=== PATIENT | male | born 1945 | race Caucasian/White ===

== ENCOUNTER 2019-08-17 08:55 | Day surgery (SDC) | payer OTHER ==
[2019-08-17 09:13] VITALS: RESP 18; TEMP 97.4
--- NOTE | 2019-08-17 10:17 | US ---
EXAMINATION TYPE: US biopsy soft tissue/muscle DATE OF EXAM: 08/17/2019 HISTORY: Right upper extremity soft tissue mass, history of lung cancer. FINDINGS: Maximal barrier technique was utilized. The skin overlying a suitable path to the patient' s mass in the right upper extremity the level of the forearm dorsally was localized with ultrasound a nd the overlying skin prepped and draped. Ultrasound was utilized with sterile technique. Lidocaine was used for local anesthesia. A skin asha was made with a scalpel. An 18-gauge needle was advance d under direct ultrasound guidance and core specimen obtained of the mass. Specimen submitted in for laureen to Pathology. Following the procedure, hemostasis achieved and the patient is discharged in st able condition without complication. IMPRESSION:STATUS POST ULTRASOUND GUIDED CORE BIOPSY OF right upper extremity soft tissue MASS, PATHO LOGY IS PENDING. THIS PROCEDURE IS PERFORMED BY THE UNDERSIGNED.
[2019-08-18 12:48] VITALS: BP 140/60; PULSE 74
== END 2019-08-17 10:45 | disposition home or self-care (01) ==
LOC: RADPROMAIN 08:55
PROVIDERS: ATTEND Internal Medicine Hematology & Oncology
DX: C79.51 Secondary malignant neoplasm of bone (principal); C78.00 Secondary malignant neoplasm of unspecified lung
CPT/HCPCS: 20206; 76942; 88305; 88341; 88342

== ENCOUNTER → 2019-11-19 | Outpatient (CLI) | payer OTHER ==
--- NOTE | 2019-11-22 08:44 | PE ---
EXAMINATION TYPE: PET CT fusion skull to thigh DATE OF EXAM: 11/19/2019 COMPARISON: None available at this location. Prior PET/CT: No prior PET/CT at this location. HISTORY: Lung cancer TECHNIQUE: Following the intravenous administration of 12.94 mCi of F-18 FDG, whole body images are performed from the skull base to the midthigh. Images are reviewed on the computer in the coronal, a xial, and sagittal planes. Reconstructed rotating images are created on independent workstation and reviewed on the computer. A localization and attenuation correction CT is performed in conjunction with the PET scan. DLP: 490.90 mGycm SCAN: Reported as subsequent. Prior PET CTs are unavailable. Blood glucose: 125 mg/dL Average Mediastinum SUV: 1.36 Average Liver SUV: 2.03 FINDINGS: NECK: No abnormal uptake THORAX: There is a consolidation within the anterior left upper lung field which has mild uptake jagdeep uring 2.08. Image 92. Focal areas of uptake are within the left hilar region, image 103. Uptake of th e anterior focus measures 3.69 and the posterior focus at the lingular lower lobe division measures 3 .6. There is a soft tissue density along the left mediastinum with a focus of increased radiotracer, image 112, SUV 4.19. Some subtle uptake may be in the right hilar region with an SUV value 1.87. This is nonspecific and i nflammatory change and early neoplasm could be considered. ABDOMEN: There is some focal increased uptake within the superior right adrenal gland measuring 2.82 SUV value. The more rounded focal portion of the right adrenal gland more inferior is less intense wi th radiotracer uptake measuring 2.2. Early metastatic disease should be considered in the superior ri ght adrenal gland. PELVIS: There is some focal increased uptake within the mid sigmoid colon with an SUV value of 4.96. Mild wall thickening is not excluded at this level. This is more focal and intense than typical ident ified with normal bowel activity. Consider additional workup for possible second neoplasm. Image 225 OSSEOUS STRUCTURES: There may be some mild uptake at the junction of the left first rib with the manu brium. This has mild uptake at the junction measuring 1.2 and is more likely related to some inflamma tory change. LOCALIZATION CT: Ascending thoracic aorta at the main pulmonary artery is 3.7 cm. Main pulmonary bon ry at the bifurcation is 2.7 cm. A small hypodensity within the region of the left hilum does not hav e significant radiotracer uptake, image 106. Coronary artery calcifications present. The right adrena l gland has a transverse dimension of 2.0 cm. Cysts are evident on the bilateral kidneys. Some sludge may be within the gallbladder. COMPARISON: None IMPRESSION: 1. There is a focus of radiotracer accumulation within the larger soft tissue density within the ante rior left upper lung field adjacent to the mediastinum suspicious for patient's reported lung cancer. Two additional foci radiotracer within the left hilar region may be metastatic lymph nodes. 2. Uptake within the superior right adrenal gland could be early metastatic disease. 3. Subtle uptake within the right hilar region is indeterminant and can be related to inflammatory ch irais or early metastatic disease. 4. Focus of radiotracer within the mid sigmoid colon with elevated SUV, consider additional neoplasm and consider additional workup of this area.
== END | disposition home or self-care (01) ==
LOC: RADPETMAIN 08:57
PROVIDERS: ATTEND Internal Medicine Hematology & Oncology
DX: C34.12 Malignant neoplasm of upper lobe, left bronchus or lung (principal)
CPT/HCPCS: 78815; A9552

== ENCOUNTER → 2020-01-03 | Outpatient (CLI) | payer OTHER ==
--- NOTE | 2020-01-03 10:34 | MR ---
EXAMINATION TYPE: MR elbow RT wo/w con DATE OF EXAM: 01/03/2020 COMPARISON: None HISTORY: Palpable mass rt elbow into prox forearm, hx radiation to this site. CONTRAST: Standard multiplanar, multisequence MRI departmental protocol utilizing 8.5 mL intravenous Gadavist g adolinium contrast. FINDINGS: There is a destructive mass involving the mid radius with abnormal marrow signal and a soft tissue ma ss measuring 2.5 x 2.9 x 3.6 cm. The joint spaces are preserved. No definite additional masses seen. There is surrounding edema adjace nt to the mass. IMPRESSION: 1. There is a 2.5 x 2.9 x 3.6 cm destructive mass involving the mid radius with soft tissue extension and marrow involvement.
== END | disposition home or self-care (01) ==
LOC: RADMRIMAIN 09:04
PROVIDERS: ATTEND Radiology Radiation Oncology
DX: R22.31 Localized swelling, mass and lump, right upper limb (principal); C79.51 Secondary malignant neoplasm of bone; F17.210 Nicotine dependence, cigarettes, uncomplicated; C34.12 Malignant neoplasm of upper lobe, left bronchus or lung
CPT/HCPCS: 73223; A9585

== ENCOUNTER → 2020-03-09 | Outpatient (CLI) | payer OTHER ==
--- NOTE | 2020-03-10 03:42 | MR ---
EXAMINATION TYPE: MR forearm RT wo/w con DATE OF EXAM: 03/09/2020 COMPARISON: HISTORY: Malignent tumor, F/U imaging post treatment CONTRAST: Standard multiplanar, multisequence MRI departmental protocol utilizing 7.5 mL intravenous Gadavist g adolinium contrast. There is an oval-shaped 3 x 2 x 2.8 cm mass involving the proximal shaft of the radius and extending into the soft tissues. There is cortical destruction on the anterior aspect of the proximal radius. T here is surrounding soft tissue edema. Proximal ulna is intact. The total area of edema measures 5 x 4 cm. Mass overall is not significantly different in size compared to previous MR scan. There is path ologic soft tissue enhancement around the mass and also enhancement of the mass. There is increased s ignal on the proton density images in the bone marrow proximal and distal to the mass within the radi us. IMPRESSION: There is mass lesion apparently arising from the cortex of the proximal radial diaphysis that is just distal to the radial tubercle. The mass overall is not significantly changed in size compared to pre vious exam of 01/03/2020. Edema surrounding the mass is slightly improved. 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 Bone marrow edema proximal and distal to the mass not significantly different.
== END | disposition home or self-care (01) ==
LOC: RADMRIMAIN 08:46
PROVIDERS: ATTEND Radiology Radiation Oncology
DX: C79.51 Secondary malignant neoplasm of bone (principal); C34.12 Malignant neoplasm of upper lobe, left bronchus or lung; F17.210 Nicotine dependence, cigarettes, uncomplicated; Z92.3 Personal history of irradiation
CPT/HCPCS: 73220; A9585

== ENCOUNTER → 2020-05-05 | Outpatient (CLI) | payer OTHER ==
--- NOTE | 2020-05-05 11:33 | MR ---
EXAMINATION TYPE: MR shoulder RT wo con DATE OF EXAM: 05/05/2020 COMPARISON: None HISTORY: Pain, history lung carcinoma TECHNIQUE: Multiplanar, multisequence imaging of the right shoulder is performed without contrast. FINDINGS: Rotator Cuff: There is a chronic rotator cuff tear with retraction of the supraspinatus tendon to the level of the acromioclavicular joint Acromioclavicular Joint: Hypertrophic changes are present Glenohumeral Joint: Humeral head is somewhat high riding Labrum: There is abnormal signal within the superior labrum, the labrum appears attenuated Biceps Tendon: The long head of biceps is in normal location within bicipital groove, fluid signal al liliya the tendon is consistent with tenosynovitis. Bone marrow signal: Some mild signal at the acromioclavicular joint, humeral head may represent react talon marrow signal change, possible small pseudocysts in the humeral head Other: Joselin present in the subacromial subdeltoid bursa. There is a distal acromial spur. IMPRESSION: Chronic rotator cuff tear, correlate for impingement. Difficult to exclude a tear of the glenoid labr um.
--- NOTE | 2020-05-05 11:39 | MR ---
EXAMINATION TYPE: MR shoulder LT wo con DATE OF EXAM: 05/05/2020 COMPARISON: None HISTORY: Bilateral shoulder pain, hx lung ca TECHNIQUE: Multiplanar, multisequence imaging of the left shoulder is performed without contrast. FINDINGS: Rotator Cuff: There is attenuated appearance of the rotator cuff at the level of its insertion, the s upraspinatus tendon shows at least a partial full-thickness tear, sagittal image #5 and 6 Acromioclavicular Joint: Hypertrophic change present at the acromioclavicular joint Glenohumeral Joint: Intact Labrum: Abnormal signal within the labrum may represent some mucoid degeneration, coronal image 15, t here is a possible para labral cyst on coronal image 15, axial image 17 Biceps Tendon: The long head of biceps is in normal location within bicipital groove. Bone marrow signal: Multiple pseudocysts present within the humeral head, small focus on coronal imag e 15 shows some intermediate signal on T1, increased signal on T2 weighted sequences, image 7 on sagi ttal image, there is marrow signal change measuring only approximately 1 cm in cephalad to caudal dim ension by 6 mm in AP dimension which is indeterminate, could be related to pseudocyst formation Other: There is fluid signal in the subacromial subdeltoid bursa. There is a distal acromial spur. IMPRESSION: Correlate for impingement. There is at least a partial full-thickness tear the rotator cuff, the rota tor cuff appears attenuated. Possible para labral cyst, tear of the glenoid labrum as described. Inde terminate marrow signal change as described of questionable clinical significance.
== END | disposition home or self-care (01) ==
LOC: RADMRIMAIN 08:52
PROVIDERS: ATTEND Internal Medicine Hematology & Oncology
DX: M75.101 Unspecified rotator cuff tear or rupture of right shoulder, not specified as traumatic (principal); M75.122 Complete rotator cuff tear or rupture of left shoulder, not specified as traumatic; C34.12 Malignant neoplasm of upper lobe, left bronchus or lung; M25.512 Pain in left shoulder; M25.119 Fistula, unspecified shoulder

== ENCOUNTER → 2020-06-09 | Outpatient (CLI) | payer OTHER ==
--- NOTE | 2020-06-11 15:27 | PE ---
Nuclear medicine PET/CT HISTORY: Lung carcinoma, subsequent Patient received 11.9 mCi F-18 FDG intravenously in delayed scanning was performed from the skull bas e to the mid thighs. Localization and attenuation correction CT scan was performed. Correlation to prior nuclear medicine PET/CT 11/19/2019 Chest and neck: There is no cervical or supraclavicular adenopathy. Left hilar mass shows abnormal up take extends into the left upper lobe along the mediastinum and is somewhat more conspicuous than on prior. There is been interval development of a focus of hypermetabolic uptake in the right hilum as w ell as interval development of right lower lobe subpleural mass with associated uptake which has prog ressed compared to prior. There is no pleural or pericardial effusion. ABDOMEN: Right adrenal gland uptake has progressed, mass is increased in size compared to prior now m easuring 2.9 x 5.7 cm as compared to prior when it measured approximately 2 cm x 3 cm. 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 No retroperit carey adenopathy, no evident liver uptake. There is no ascites. Sigmoid uptake is indeterminate but c ould be physiologic, difficult to exclude an underlying mucosal lesion, there is diverticulosis. Osseous structures are stable. IMPRESSION: There is been progression of patient's abnormalities as described.
== END | disposition home or self-care (01) ==
LOC: RADPETMAIN 10:20
PROVIDERS: ATTEND Internal Medicine Hematology & Oncology
DX: C34.12 Malignant neoplasm of upper lobe, left bronchus or lung (principal); R93.5 Abnormal findings on diagnostic imaging of other abdominal regions, including retroperitoneum; E11.9 Type 2 diabetes mellitus without complications; Z92.3 Personal history of irradiation; Z92.21 Personal history of antineoplastic chemotherapy
CPT/HCPCS: 78815; A9552

== ENCOUNTER → 2020-09-01 | Outpatient (CLI) | payer OTHER ==
[2020-09-01 11:23] LABS: African American GFR (CKD) >90 (>60 ml/min/1.73 sqM); Blood Urea Nitrogen 9 mg/dL (9-20); Non-African American GFR(CKD) 88 (>60 ml/min/1.73 sqM)
--- NOTE | 2020-09-01 13:42 | CT ---
EXAMINATION TYPE: CT ChestAbdPelvis wo/w con DATE OF EXAM: 09/01/2020 COMPARISON: Prior PET CTs June 09, 2020 and November 19, 2019 HISTORY: Secondary malignant neoplasm right adrenal gland. Primary lung. CT DLP: 3557 mGycm. Automated Exposure Control for Dose Reduction was Utilized. CONTRAST: CT scan of the thorax, abdomen and pelvis is performed without and with IV Contrast, patient injected with 100 mL of Isovue M300. FINDINGS: LUNGS: Backwall mild to moderate underlying emphysematous change. Continued worsening left hilar mass or neoplasm with some heterogeneous postcontrast enhancement, area of concern measures roughly 8.1 x 6.0 cm axial image 33 series 7. Extension to left hilar region redemonstrated. There is abrupt narro wing of the left upper lobe bronchus more prominent from prior studies. Stable or slightly larger appearing thick walled cavitary peripheral right lower lobe 2.8 x 2.5 cm le erica image 48 versus 2.4 x 2.1 cm most recent PET/CT. No pleural effusion or pneumothorax seen bilaterally. No new nodules or masses. Occasional scattered peripheral micronodule in the lower lobes redemonstrated. MEDIASTINUM: There are persistent suspicious right hilar lymph nodes for reference and 0.2 x 0.9 cm t he thorax measures 35 corresponding to most recent PET/CT. Persistent irregular tissue left hilar reg ion. No new greater than 1 cm adenopathy. No cardiomegaly or pericardial effusion is seen. Heteroge neous thyroid, underlying nodule suspected. LIVER/GB: Scattered small subcentimeter hypodense lesions throughout the liver favor benign etiology less well seen on PET/CT. Dependent calcified gallstones along with hyperdense material suggesting sm all stones and/or sludge. PANCREAS: No significant abnormality is seen. SPLEEN: No significant abnormality is seen. ADRENALS: Persistent right adrenal enhancing masses. There is 2.7 x 1.9 cm superior lateral lesion im age 67 and 2.2 x 1.7 cm slightly more inferior central lesion on image 67. Similar findings to most r ecent PET/CT. KIDNEYS: Scattered simple-appearing thin-walled cysts of varying size and shape throughout both kidne ys. There is 4 mm nonobstructing calculus left kidney midpole level axial image 74 series 7 redemonst rated. There are small dependent calculi in the urinary bladder left aspect axial image 121 BOWEL: Or contrast reaches level of the hepatic flexure. Sigmoid colonic diverticula. No CT evidence for acute diverticulitis. No suspicious small or large bowel dilatation. GENITAL ORGANS: Prostate gland upper limits of normal. LYMPH NODES: No greater than 1cm abdominal or pelvic lymph nodes are appreciated. OSSEOUS STRUCTURES: Moderate axial joint space loss in both hips with mild to moderate acetabular spu rring. Stable sclerotic focus favoring benign bone island left proximal humerus. OTHER: Severe calcified plaque of the abdominal aorta extends into iliac branch vessels. Asymmetric s mall fat-containing left inguinal hernia redemonstrated. IMPRESSION: Suspect some continued neoplastic progression. More prominent left hilar mass or neoplasm . Slightly larger thick-walled cavitary right lower lobe peripheral lesion. Stable right hilar adenop athy. Fairly stable right adrenal metastatic lesion. No new metastatic disease identified.
== END | disposition home or self-care (01) ==
LOC: RADCTMAIN 10:44
PROVIDERS: ATTEND Radiology Radiation Oncology
DX: R59.0 Localized enlarged lymph nodes (principal); J98.4 Other disorders of lung; E27.8 Other specified disorders of adrenal gland; C79.71 Secondary malignant neoplasm of right adrenal gland; C79.51 Secondary malignant neoplasm of bone; F17.210 Nicotine dependence, cigarettes, uncomplicated; Z92.3 Personal history of irradiation
CPT/HCPCS: 82565; 84520; 71270; 74178; 36415; Q9967 ×2

== ENCOUNTER → 2020-09-08 | Outpatient (CLI) | payer OTHER ==
--- NOTE | 2020-09-09 02:05 | MR ---
EXAMINATION TYPE: MR brain wo/w con DATE OF EXAM: 09/08/2020 COMPARISON: HISTORY: Cancer of right adrenal gland, secondary malignant neoplasm of bone CONTRAST: Standard multiplanar, multisequence MRI departmental protocol utilizing 8.5 mL intravenous Gadavist g adolinium contrast. There is a 2.6 cm rounded area of pathologic enhancement involving the left side of the brainstem and left cerebellar peduncle. There is adjacent extensive white matter edema in the brainstem and left c erebellar hemisphere. There are 2 smaller areas of rounded pathologic enhancement in the left cerebel lar hemisphere that measure 2.2 cm and 1.7 cm. These are consistent with metastatic disease. There is no midline shift. There is no sign of intracranial hemorrhage. There is normal enhancement of the ve nous sinuses. Corpus callosum is intact. Sella turcica appears normal. IMPRESSION: Enhancing masses in the left side of the brainstem in the batsheva and left cerebellar peduncle and in th e left cerebellar hemisphere consistent with multiple foci of metastatic disease.
== END | disposition home or self-care (01) ==
LOC: RADMRIMAIN 19:47
PROVIDERS: ATTEND Radiology Radiation Oncology
DX: R22.0 Localized swelling, mass and lump, head (principal); C79.51 Secondary malignant neoplasm of bone; C79.71 Secondary malignant neoplasm of right adrenal gland; F17.210 Nicotine dependence, cigarettes, uncomplicated; Z92.3 Personal history of irradiation
CPT/HCPCS: 70553; A9585

== ENCOUNTER → 2020-11-03 | Outpatient (CLI) | payer OTHER ==
--- NOTE | 2020-11-06 08:04 | MR ---
EXAMINATION TYPE: MR brain wo/w con DATE OF EXAM: 11/03/2020 COMPARISON: 09/08/2020 HISTORY: F/u Cancer CONTRAST: Performed utilizing 9 mL intravenous Gadavist gadolinium contrast. TECHNIQUE: Multiplanar, multiecho imaging on a 3.0 Stefany magnet is performed through the brain. Stud y is performed within 24 hours of arrival to the hospital. The craniovertebral junction is normal. The pituitary is normal. Diffusion-weighted imaging is performed. No abnormal hyperintensity is present to suggest an acute i ntracranial infarct or acute ischemic change. Metastatic lesions appear hypointense. There is an irregular enhancing lesion in the left cerebellum and 0.9 x 1.4 cm. A second more superio r left cerebellar enhancing lesion measuring 7 x 1.3 cm cyst present. There is a left brain stem lesi on measuring 2.4 x 1.9 cm. These were present previously. The vasogenic edema present previously has significantly diminished. A tiny 0.4 cm lesion may be within the right thalamus. This is a new finding from comparison. This m ay have enhancement suggesting possible metastasis. Differential diagnosis however should include lac unar infarct and focal microvascular ischemic change is not hyperintense on the diffusion weighted im aging suggests this is not an acute ischemic change. These findings can be compatible with metastatic disease. Ventricles and sulci are appropriate for the patient age. No temporal horn dilatation of the lateral ventricles is evident. No midline shift is evident. No mass effect on the adjacent fourth ventricle i s evident. This area has improved from previous edema. IMPRESSIONS: 1. Results vasogenic edema surrounding the enhancing metastatic lesions within the left cerebellum an d left brainstem. 2. There is a new 0.4 cm lesion within right thalamus. This could be a new lacunar infarct are focal microvascular ischemic change. This could be a new focus of metastasis.
== END | disposition home or self-care (01) ==
LOC: RADMRIMAIN 09:09
PROVIDERS: ATTEND Radiology Radiation Oncology
DX: G93.6 Cerebral edema (principal); G93.9 Disorder of brain, unspecified
CPT/HCPCS: 70553; A9585

== ENCOUNTER 2020-12-08 09:57 | Inpatient (IN) | payer OTHER, MEDICARE ==
[2020-12-08 10:09] VITALS: TEMP 99.3
[2020-12-08] MEDS ORDERED: LORazepam 2 MG/ML INJ IV STA ×2 (10:12→16:31)
[2020-12-08] MEDS ORDERED: SODIUM CHLORIDE 0.9% 1,000 ML IV ONE (10:12)
[2020-12-08] MEDS ORDERED: SODIUM CHLORIDE 0.9% 2,000 ML IV ONE (10:13)
[2020-12-08] MEDS ORDERED: MIDAZOLAM 1 MG/ML 5 ML VIAL IV STA (10:21)
[2020-12-08] MEDS ORDERED: SUCCINYLCHOLINE CHLORIDE VIAL 200 MG/10 ML VIAL IV STA (10:22)
[2020-12-08] MEDS ORDERED: ROCURONIUM 10 MG/ML (5 ML VIAL) IV STA (10:24)
[2020-12-08 10:27] LABS: Glucose,Whole Blood 237 mg/dL (75-99)
--- NOTE | 2020-12-08 10:31 | ED ---
General Adult HPI - General Chief complaint: Altered Mental Status Stated complaint: unresponsive Time Seen by Provider: 12/08/20 09:57 Source: family, EMS, RN notes reviewed, old records reviewed Limitations: no limitations - History of Present Illness Initial comments: This is a 75-year-old male comes in because of breath. Distress. states he was having what seemed like a panic attack and he became nauseous wanted to go to bathroom he kind of wanted to do everything all at once it was extremely anxious. When EMS arrived they get the patient to the ambulance and became unresponsive in the arrived unresponsive shortly thereafter he started moving all 4 extremities speaking but inappropriately not answering questions and following commands very agitated and anxious. 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 is not sure about the CODE STATUS but when she asked him he really was not of a sound mind he said he wanted to be intubated. Shortly thereafter the patient became alert and was normal was going on but then again became confused and significantly altered. - Related Data Home Medications Medication Instructions Recorded Confirmed Acetaminophen [Tylenol Arthritis] 650 mg PO DAILY 08/16/19 08/17/19 Cholecalciferol (Vitamin D3) 2,000 unit PO DAILY 08/16/19 08/17/19 [Vitamin D3] Multivitamin [Multivitamins Adult 1 each PO DAILY 08/16/19 08/17/19 Gummies] Vitamin B Complex 1 each PO DAILY 08/16/19 08/17/19 Allergies Allergy/AdvReac Type Severity Reaction Status Date / Time penicillin G Allergy Swelling Verified 12/08/20 10:05 Review of Systems ROS Statement: Those systems with pertinent positive or pertinent negative responses have been documented in the HPI. ROS Other: All systems not noted in ROS Statement are negative. Past Medical History Past Medical History: Cancer Additional Past Medical History / Comment(s): lung CA and lymph node have been treated with Chemo and radiation. Right arm lesion scheduled for biopsy and radiation. History of Any Multi-Drug Resistant Organisms: None Reported Past Surgical History: No Surgical Hx Reported Past Anesthesia/Blood Transfusion Reactions: No Reported Reaction Past Psychological History: No Psychological Hx Reported Past Alcohol Use History: None Reported Past Drug Use History: Marijuana General Exam - General Exam Comments Initial Comments: GENERAL: Patient is well-developed and well-nourished. Patient is nontoxic and well- hydrated and is in severe distress. ENT: Neck is soft and supple. No significant lymphadenopathy is noted. Oropharynx is clear. Moist mucous membranes. Neck has full range of motion without eliciting any pain. EYES: The sclera were anicteric and conjunctiva were pink and moist. Extraocular movements were intact and pupils were equal round and reactive to light. Eyelids were unremarkable. 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 SKIN: Skin appears mottled NEUROLOGIC: Patient is alert and oriented 0. Cranial nerves II through XII are grossly intact. Patient moving all 4 extremities. Patient has an initial GCS of 7 and it went up to 13 patient then became confused again and at which point time he would not settle down even with Ativan so we intubated him because he was GCS of 7 again and was not responding to his low and his blood pressure was low and we needed to get the patient to the CAT scanner. MUSCULOSKELETAL: Normal extremities with adequate strength and full range of motion. LYMPHATICS: No significant lymphadenopathy is noted PSYCHIATRIC: Unable to assess at this time Limitations: no limitations Course Vital Signs 12/08/20 12/08/20 12/08/20 09:59 10:14 11:09 Temperature 99.3 F Pulse Rate 150 H 134 H 113 H Respiratory 26 H 18 16 Rate Blood Pressure 97/63 85/69 87/62 O2 Sat by Pulse 96 92 L 99 Oximetry Procedures - Intubation Sedative: Versed Paralytic: Succinylcholine Laryngoscope: Carreno Size: 3 ET Tube Size: 8 ET Tube Uncuffed: No Tube Secured Location: teeth Tube Placement Confirmation: visualized tube passing through cords, equal breath sounds bilaterally, no breath sounds over epigastrium, confirmation by capnometry Patient Tolerated Procedure: well Intubation Complications: none Medical Decision Making - Medical Decision Making EKG shows atrial fibrillation with rapid ventricular response at 122 bpm cardiac is under 44 QT interval 340 QTC is 484. Patient does have some ST segment elevation in the inferior leads II, III, and F aVF. As was ST segment depression in precordial leads V2 through V6 as well as 1 and aVL I spoke with Dr. Vilchis he came down and saw the patient but because the patient was so unstable he was not going to take the patient's lab at this time after the patient was intubated repeat EKG was also sinus tachycardia with occasional PVC at [address] interval is 176 QRS is 150 QT interval 338 QTC is 465. Patient's EKG no longer shows any ST segment elevation in the inferior leads. Patient does have Q waves in the inferior leads. I spoke with family stated the patient was a no code but they wanted him to scan the ventilator was helping him at least for the time being. I spoke with Dr. Davis toe he stated there would be no intervention. Pulmonary embolism. Computed tomography scan shows a massive pulmonary embolus. Patient is on Levophed and heparin as well as propofol. - Lab Data Result diagrams: 12/08/20 10:16 12/08/20 10:16 Lab Results 12/08/20 12/08/20 12/08/20 Range/Units 10:07 10:16 10:16 WBC 18.2 H (3.8-10.6) k/uL RBC 4.76 (4.30-5.90) m/uL Hgb 13.7 (13.0-17.5) gm/dL Hct 44.9 (39.0-53.0) % MCV 94.3 (80.0-100.0) fL MCH 28.8 (25.0-35.0) pg MCHC 30.5 L (31.0-37.0) g/dL RDW 15.9 H (11.5-15.5) % Plt Count 421 (150-450) k/uL MPV 7.6 Neutrophils % 70 % Lymphocytes % 18 % Monocytes % 7 % Eosinophils % 1 % Basophils % 1 % Neutrophils # 12.7 H (1.3-7.7) k/uL Lymphocytes # 3.3 (1.0-4.8) k/uL Monocytes # 1.2 H (0-1.0) k/uL Eosinophils # 0.2 (0-0.7) k/uL Basophils # 0.2 (0-0.2) k/uL Hypochromasia Marked PT 9.7 (9.0-12.0) sec INR 0.9 (<1.2) APTT 20.5 L (22.0-30.0) sec D-Dimer 8.64 H (<0.60) mg/L FEU Sample Site ABG pH (7.35-7.45) ABG pCO2 (35-45) mmHg ABG pO2 (83-108) mmHg ABG HCO3 (21-25) mmol/L ABG Total CO2 (19-24) mmol/L ABG O2 Saturation (94-97) % ABG Base Excess mmol/L Brian Test FiO2 % Sodium (137-145) mmol/L Potassium (3.5-5.1) mmol/L Chloride (98-107) mmol/L Carbon Dioxide (22-30) mmol/L Anion Gap mmol/L BUN (9-20) mg/dL Creatinine (0.66-1.25) mg/dL Est GFR (CKD-EPI)AfAm (>60 ml/min/1.73 sqM) Est GFR (CKD-EPI)NonAf (>60 ml/min/1.73 sqM) Glucose (74-99) mg/dL POC Glucose (mg/dL) 237 H (75-99) mg/dL POC Glu Split Leather Mosser ID Willing, Ann Calcium (8.4-10.2) mg/dL Total Bilirubin (0.2-1.3) mg/dL AST (17-59) U/L ALT (4-49) U/L Alkaline Phosphatase (38-126) U/L Troponin I (0.000-0.034) ng/mL Total Protein (6.3-8.2) g/dL Albumin (3.5-5.0) g/dL 12/08/20 12/08/20 12/08/20 Range/Units 10:16 10:16 11:08 WBC (3.8-10.6) k/uL RBC (4.30-5.90) m/uL Hgb (13.0-17.5) gm/dL Hct (39.0-53.0) % MCV (80.0-100.0) fL MCH (25.0-35.0) pg MCHC (31.0-37.0) g/dL RDW (11.5-15.5) % Plt Count (150-450) k/uL MPV Neutrophils % % Lymphocytes % % Monocytes % % Eosinophils % % Basophils % % Neutrophils # (1.3-7.7) k/uL Lymphocytes # (1.0-4.8) k/uL Monocytes # (0-1.0) k/uL Eosinophils # (0-0.7) k/uL Basophils # (0-0.2) k/uL Hypochromasia PT (9.0-12.0) sec INR (<1.2) APTT (22.0-30.0) sec D-Dimer (<0.60) mg/L FEU Sample Site rbrach ABG pH 6.94 L* (7.35-7.45) ABG pCO2 81 H* (35-45) mmHg ABG pO2 302 H (83-108) mmHg ABG HCO3 17 L (21-25) mmol/L ABG Total CO2 20 (19-24) mmol/L ABG O2 Saturation 98.7 H (94-97) % ABG Base Excess -15.1 mmol/L Brian Test Yes FiO2 100 % Sodium 143 (137-145) mmol/L Potassium 4.1 (3.5-5.1) mmol/L Chloride 106 (98-107) mmol/L Carbon Dioxide 18 L (22-30) mmol/L Anion Gap 19 mmol/L BUN 11 (9-20) mg/dL Creatinine 0.97 (0.66-1.25) mg/dL Est GFR (CKD-EPI)AfAm 90 (>60 ml/min/1.73 sqM) Est GFR (CKD-EPI)NonAf 78 (>60 ml/min/1.73 sqM) Glucose 249 H (74-99) mg/dL POC Glucose (mg/dL) (75-99) mg/dL POC Glu Split Leather Mosser ID Calcium 9.7 (8.4-10.2) mg/dL Total Bilirubin 0.6 (0.2-1.3) mg/dL AST 22 (17-59) U/L ALT 12 (4-49) U/L Alkaline Phosphatase 99 (38-126) U/L Troponin I 0.101 H* (0.000-0.034) ng/mL Total Protein 5.9 L (6.3-8.2) g/dL Albumin 3.2 L (3.5-5.0) g/dL Critical Care Time Critical Care Time: Yes Total Critical Care Time: 50 Disposition Clinical Impression: Altered mental status, Pulmonary embolus, Respiratory distress Disposition: ADMITTED IP TO THIS HOSP Referrals: None,Stated [Primary Care Provider] - 1-2 days Time of Disposition: 11:51
[2020-12-08 10:34] LABS: Albumin 3.2 g/dL (3.5-5.0); Calcium 9.7 mg/dL (8.4-10.2); Potassium 4.1 mmol/L (3.5-5.1); Total Bilirubin 0.6 mg/dL (0.2-1.3); Total Protein 5.9 g/dL (6.3-8.2)
[2020-12-08 10:40] LABS: Basophils # (A) 0.2 k/uL (0-0.2); Basophils % (A) 1 %; Eosinophils # (A) 0.2 k/uL (0-0.7); Eosinophils % (A) 1 %; HCT 44.9 % (39.0-53.0); HGB 13.7 gm/dL (13.0-17.5); Hypochromasia Marked; Lymphocytes # (A) 3.3 k/uL (1.0-4.8); Lymphocytes % (A) 18 %; MCH 28.8 pg (25.0-35.0); MCHC 30.5 g/dL (31.0-37.0); MCV 94.3 fL (80.0-100.0); Mean Platelet Volume 7.6; Monocytes # (A) 1.2 k/uL (0-1.0); Monocytes % (A) 7 %; Neutrophils # (A) 12.7 k/uL (1.3-7.7); Neutrophils % (A) 70 %; Platelet Count 421 k/uL (150-450); RBC 4.76 m/uL (4.30-5.90); RDW 15.9 % (11.5-15.5); WBC 18.2 k/uL (3.8-10.6)
--- NOTE | 2020-12-08 11:06 | CT ---
EXAMINATION TYPE: CT brain wo con DATE OF EXAM: 12/08/2020 COMPARISON: Correlation made with MRI of the brain from 11/03/2020. HISTORY: Pt unresponsive CT DLP: 1139.4 mGycm Automated exposure control for dose reduction was used. FINDINGS: Images demonstrate no evidence of an acute intracranial hemorrhage. There is no midline shift. There is demonstration of area of low-attenuation involving the left batsheva and left cerebellum likely representing malignant lesion seen on MRI of the brain from a month ago. There is subtle low attenuation in periventricular distribution likely representing chronic small ves shazia ischemic disease. No displaced skull fracture or lytic or blastic process is seen. IMPRESSION: REDEMONSTRATION OF MALIGNANT LESION IN THE LEFT BATSHEVA AND LEFT CEREBELLUM. NO ACUTE INTRACRANIAL HEMOR RHAGE.
[2020-12-08] MEDS ORDERED: HEPARIN SODIUM 1,000 UN/ML (10ML VL) IV STA (11:10)
[2020-12-08] MEDS ORDERED: HEPARIN SOD,PORK IN 0.45% NACL 25,000 UNIT in 0.45% NACL 1 250ML.BAG IV SCH (11:15)
[2020-12-08] MEDS ORDERED: NOREPINEPHRINE 4 MG in SODIUM CHLORIDE 0.9% 250 ML IV SCH (11:15)
--- NOTE | 2020-12-08 11:18 | CT ---
EXAMINATION TYPE: CT chest angio for PE DATE OF EXAM: 12/08/2020 COMPARISON: Pain from 4 9 HISTORY: Unresponsive, SANDRA CT DLP: 644.2 mGycm Automated exposure control for dose reduction was used. CONTRAST: CT Chest for pulmonary embolism performed with with IV Contrast, patient injected with 100 mL of Isov ue 370. Multiplanar reconstruction in the imaging reconstruction was provided. Correlation made with prior ex amination from 09/01/2020. FINDINGS: LUNGS: Images demonstrate presence of 8 x 6 cm left hilar mass and appears slightly larger compared t o prior examination. A right lower lobe necrotic mass measures 2.5 x 3.0 cm and this is also enlarged compared to prior examination. MEDIASTINUM: There is large filling defect seen in the right main pulmonary artery. Smaller filling d efects are seen in the segmental branches of the left pulmonary artery. The findings represent massiv e bilateral pulmonary embolism. There is reflux of contrast into the IVC. There is decrease in size o f the left ventricle and increase in size of the right ventricle this represents right heart strain. OTHER: There is no pericardial effusion or pleural effusion. IMPRESSION: Massive or submassive pulmonary embolism with severe right heart strain. Mild: Findings on this study were conveyed to Dr. Funez the emergency room at 11:16 AM via telephone b y Dr. Olivera. Marge findings was performed. Patient was identified with 2 patient identifiers.
[2020-12-08 11:19] LABS: INR 0.9 (<1.2); Prothrombin Time 9.7 sec (9.0-12.0)
[2020-12-08 11:20] LABS: D-Dimer 8.64 mg/L FEU (<0.60); Partial Thromboplastin Time 20.5 sec (22.0-30.0)
[2020-12-08 11:23] LABS: ABG Base Excess -15.1 mmol/L; ABG HCO3 17 mmol/L (21-25); ABG Oxygen Saturation 98.7 % (94-97); ABG PO2 302 mmHg (83-108); ABG TCO2 20 mmol/L (19-24); Allen Test Performed? Yes
[2020-12-08 11:31] LABS: ABG PCO2 81 mmHg (35-45); ABG PH 6.94 (7.35-7.45)
[2020-12-08] MEDS ORDERED: fentaNYL (PF). 1,000 MCG in SODIUM CHLORIDE 0.9% 80 ML IV SCH (12:45)
--- NOTE | 2020-12-08 12:53 | P.CRDCN ---
History of Present Illness History of present illness: HISTORY OF PRESENTING ILLNESS This is a pleasant 75-year-old male past medical history significant for lung cancer with mets to the brain s/p chemo and radiation. We were called in ER to see this patient for possible ST elevation noted on EKG. He was brought in by EMS for being unresponsive at home. He was obtunded on arrival to ER and not responding appropriately. He is thrashing around on the cart. He is visibly short of breath. According to his he had acute onset of shortness of breath and feeling very anxious. On arrival to ER he was intubated to protect his airway. EKG revealed ST elevations inferiorly with underlying atrial fibrillation with rates in the 120-130s. After intubation his oxygen saturation were only 65%. Eventually they were able to get him to CT and was found to have submassive PE with severe right heart strain. Laboratory data reviewed, WBC 18.2, hemoglobin 13.7, platelets 421, d-dimer 8.6, pH 6.9, pCO2 81, pO2 302 and bicarb 17, sodium 143, potassium 4.1, creatinine 0.97, troponin 0.101. REVIEW OF SYSTEMS At the time of my exam: Complains of severe shortness of breath. Otherwise unable to obtain full review of systems. PHYSICAL EXAMINATION Blood pressure 87/62 heart rate 113 afebrile and maintaining oxygen saturation on mechanical ventilation. CONSTITUTIONAL: Significant respiratory distress. Mottled and blue from the neck up. HEENT: Head is normocephalic. Mucous membranes of the mouth are moist. No JVD. No carotid bruit. CHEST EXAMINATION: Lungs are clear to auscultation. No chest wall tenderness is noted on palpation or with deep breathing. HEART EXAMINATION: Irregular rate and rhythm. S1, S2 heard. EXTREMITIES: 1+ peripheral pulses, no lower extremity edema and no calf tenderness. NEUROLOGIC EXAMINATION: Unresponsive ASSESSMENT ST elevation Hypoxic respiratory failure Paroxysmal atrial fibrillation with rapid ventricular rate Massive/submassive pulmonary embolism History of lung cancer with brain mets PLAN Lengthy discussion with his . Given his underlying significant metastatic disease, PE and hypoxia his prognosis is extremely poor. We do not recommend aggressive intervention at this time and she is in complete agreement. He has been initiated on IV heparin for PE. Add daily aspirin and atorvastatin. Obtain 2D echocardiogram and doppler study to assess cardiac structure and function. Thank you kindly for this consultation. Nurse Practitioner note has been reviewed, I agree with a documented findings and plan of care. Patient was seen and examined. Past Medical History Past Medical History: Cancer Additional Past Medical History / Comment(s): lung CA and lymph node have been treated with Chemo and radiation. Right arm lesion scheduled for biopsy and radiation. History of Any Multi-Drug Resistant Organisms: None Reported Past Surgical History: No Surgical Hx Reported Past Anesthesia/Blood Transfusion Reactions: No Reported Reaction Past Psychological History: No Psychological Hx Reported Past Alcohol Use History: None Reported Past Drug Use History: Marijuana Medications and Allergies Home Medications Medication Instructions Recorded Confirmed Type Acetaminophen [Tylenol Arthritis] 650 mg PO DAILY 08/16/19 08/17/19 History Cholecalciferol (Vitamin D3) 2,000 unit PO DAILY 08/16/19 08/17/19 History [Vitamin D3] Multivitamin [Multivitamins Adult 1 each PO DAILY 08/16/19 08/17/19 History Gummies] Vitamin B Complex 1 each PO DAILY 08/16/19 08/17/19 History Allergies Allergy/AdvReac Type Severity Reaction Status Date / Time penicillin G Allergy Swelling Verified 12/08/20 10:05 Physical Exam Vitals: Vital Signs Temp Pulse Resp BP Pulse Ox 12/08/20 11:09 113 H 16 87/62 99 12/08/20 10:14 134 H 18 85/69 92 L 12/08/20 09:59 99.3 F 150 H 26 H 97/63 96 Intake and Output 12/07/20 12/08/20 12/08/20 22:59 06:59 14:59 Other: Weight 95.254 kg Results 12/08/20 10:16 12/08/20 10:16 Cardiac Enzymes 12/08/20 12/08/20 Range/Units 10:16 10:16 AST 22 (17-59) U/L Troponin I 0.101 H* (0.000-0.034) ng/mL Coagulation 12/08/20 Range/Units 10:16 PT 9.7 (9.0-12.0) sec APTT 20.5 L (22.0-30.0) sec CBC 12/08/20 Range/Units 10:16 WBC 18.2 H (3.8-10.6) k/uL RBC 4.76 (4.30-5.90) m/uL Hgb 13.7 (13.0-17.5) gm/dL Hct 44.9 (39.0-53.0) % Plt Count 421 (150-450) k/uL Comprehensive Metabolic Panel 12/08/20 Range/Units 10:16 Sodium 143 (137-145) mmol/L Potassium 4.1 (3.5-5.1) mmol/L Chloride 106 (98-107) mmol/L Carbon Dioxide 18 L (22-30) mmol/L BUN 11 (9-20) mg/dL Creatinine 0.97 (0.66-1.25) mg/dL Glucose 249 H (74-99) mg/dL Calcium 9.7 (8.4-10.2) mg/dL AST 22 (17-59) U/L ALT 12 (4-49) U/L Alkaline Phosphatase 99 (38-126) U/L Total Protein 5.9 L (6.3-8.2) g/dL Albumin 3.2 L (3.5-5.0) g/dL Current Medications Generic Name Dose Route Start Last Admin Trade Name Freq PRN Reason Stop Dose Admin Norepinephrine Bitartrate 4 mg 254 mls @ 18.146 mls/hr 12/08/20 11:15 12/08/20 11:06 / Sodium Chloride IV 0.05 mcg/kg/min .Q14H JENNIFER 18.146 mls/hr Administration Protocol 0.05 MCG/KG/MIN Heparin Sodium/Sodium Chloride 250 mls @ 17.146 mls/hr 12/08/20 11:15 12/08/20 11:41 25,000 unit/ Sodium Chloride IV 18 units/kg/hr .[id number] JENNIFER 17.146 mls/hr Administration Protocol 18 UNITS/KG/HR Intake and Output 12/07/20 12/08/20 12/08/20 22:59 06:59 14:59 Other: Weight 95.254 kg Patient Weight 12/09/20 06:59 Weight 95.254 kg 12/08/20 10:16 12/08/20 10:16
[2020-12-08] MEDS ORDERED: ATORVASTATIN 80 MG TAB PO SCH (13:00)
[2020-12-08] MEDS ORDERED: ASPIRIN 81 MG PO SCH (13:00)
[2020-12-08] MEDS ORDERED: NALOXONE 0.4 MG/ML 1 ML VIAL IV PRN (13:04)
--- NOTE | 2020-12-08 13:23 | P.CNPUL ---
History of Present Illness Consult date: 12/08/20 Reason for consult: hypoxemia, pulmonary embolism Chief complaint: Shortness of breath History of present illness: This is a 75-year-old gentleman with a known history of metastatic lung cancer, stage IV. PET scan from May 2020 revealed left hilar mass extending into the left upper lobe lung mediastinum an interval development of uptake in the right hilum as well as a right lower lobe subpleural mass. Recent right adrenal gland mass measuring 2.9 x 5.7 revealing progression compared to one in October 2019. Computed tomography scan of the chest abdomen and pelvis from August 2020 also revealed neoplastic progression. More prominent left hilar mass. Slightly larger thick-walled cavitary right lower lobe lesion. Stable right hilar adenopathy. Fairly stable right adrenal metastatic lesion. MRI of the brain from 11/03/2020 revealed vasogenic edema surrounding enhancing metastatic lesions within the left cerebellum and left brain stem. There was a new 0.4 cm lesion within the right thalamus. Possible new lacunar infarct with microvascular ischemic changes. The patient had subsequently undergone radiation treatments to the brain. Since that time he has become progressively weak and fatigued and tired. He had been mainly moving only from his bed to the couch and back to bed the last couple of weeks according to his family. Earlier this morning the patient had hollered for his he was in respiratory distress. She felt as though he was having a panic attack. Was nauseated and then became extremely anxious and short of breath. EMS was called the patient was unresponsive initially but moving all 4 extremities. He is brought into the emergency room and subsequently intubated and placed on mechanical ventilator. EKG revealed atrial fibrillation with a rapid ventricular response with heart rate in the 120s. Also ST segment depression in leads V2 through 6. He was deemed too unstable to go to the [facility]. CT angiogram reveals massive or submassive pulmonary embolism with severe right heart strain. Not a candidate for TPA due to metastatic brain lesions. He is seen this morning in consultation in the emergency room. He remains intubated on mechanical ventilator. Currently on propofol at 30 mcg/kg/m. Norepinephrine at 0.1 mcg/kg/m. Heparin drip per weight-based protocol. Current vent settings are assist control at a rate of 28, tidal volume 400, FiO2 100% and a PEEP of 5. Arterial blood gases revealed a PaO2 of 302, pCO2 81, pH 6.94. White count 18.2. Hemoglobin 13.7. D-dimer 8.64. Sodium 143. Potassium 4.1. Bicarb 18. Creatinine 0.97. Glucose 249. Troponin 0.101. Review of Systems ROS unobtainable: due to endotracheal tube Past Medical History Past Medical History: Cancer Additional Past Medical History / Comment(s): lung CA and lymph node have been treated with Chemo and radiation. Right arm lesion scheduled for biopsy and radiation. History of Any Multi-Drug Resistant Organisms: None Reported Past Surgical History: No Surgical Hx Reported Past Anesthesia/Blood Transfusion Reactions: No Reported Reaction Past Psychological History: No Psychological Hx Reported Past Alcohol Use History: None Reported Past Drug Use History: Marijuana Medications and Allergies Home Medications Medication Instructions Recorded Confirmed Type Acetaminophen [Tylenol Arthritis] 650 mg PO DAILY 08/16/19 08/17/19 History Cholecalciferol (Vitamin D3) 2,000 unit PO DAILY 08/16/19 08/17/19 History [Vitamin D3] Multivitamin [Multivitamins Adult 1 each PO DAILY 08/16/19 08/17/19 History Gummies] Vitamin B Complex 1 each PO DAILY 08/16/19 08/17/19 History Allergies Allergy/AdvReac Type Severity Reaction Status Date / Time penicillin G Allergy Swelling Verified 12/08/20 10:05 Physical Exam Vitals: Vital Signs Temp Pulse Resp BP Pulse Ox 12/08/20 11:09 113 H 16 87/62 99 12/08/20 10:14 134 H 18 85/69 92 L 12/08/20 09:59 99.3 F 150 H 26 H 97/63 96 Intake and Output 12/07/20 12/08/20 12/08/20 22:59 06:59 14:59 Other: Weight 95.254 kg GENERAL EXAM: Intubated, sedated 75-year-old gentleman. HEAD: Normocephalic. EYES: Normal reaction of pupils, equal size. NOSE: Clear with pink turbinates. THROAT: No erythema or exudates. NECK: No masses, no JVD. CHEST: No chest wall deformity. LUNGS: Equal air entry with bilateral scattered rhonchi CVS: S1 and S2 normal with no audible murmur, irregular rhythm. ABDOMEN: No hepatosplenomegaly, normal bowel sounds, no guarding or rigidity. SPINE: No scoliosis or deformity SKIN: No rashes CENTRAL NERVOUS SYSTEM: Intubated, sedated, tone is normal in all 4 extremities. EXTREMITIES: There is no peripheral edema. No clubbing, no cyanosis. Peripheral pulses are intact. Results - Laboratory Findings CBC and BMP: 12/08/20 10:16 12/08/20 10:16 ABG ABG pH 6.94 (7.35-7.45) L* 12/08/20 11:08 ABG pCO2 81 mmHg (35-45) H* 12/08/20 11:08 ABG pO2 302 mmHg (83-108) H 12/08/20 11:08 ABG O2 Saturation 98.7 % (94-97) H 12/08/20 11:08 PT/INR, D-dimer PT 9.7 sec (9.0-12.0) 12/08/20 10:16 INR 0.9 (<1.2) 12/08/20 10:16 D-Dimer 8.64 mg/L FEU (<0.60) H 12/08/20 10:16 Abnormal lab findings: Abnormal Labs 12/08/20 12/08/20 12/08/20 10:07 10:16 10:16 WBC 18.2 H MCHC 30.5 L RDW 15.9 H Neutrophils # 12.7 H Monocytes # 1.2 H APTT 20.5 L D-Dimer 8.64 H ABG pH ABG pCO2 ABG pO2 ABG HCO3 ABG O2 Saturation Carbon Dioxide Glucose POC Glucose (mg/dL) 237 H Troponin I Total Protein Albumin 12/08/20 12/08/20 12/08/20 10:16 10:16 11:08 WBC MCHC RDW Neutrophils # Monocytes # APTT D-Dimer ABG pH 6.94 L* ABG pCO2 81 H* ABG pO2 302 H ABG HCO3 17 L ABG O2 Saturation 98.7 H Carbon Dioxide 18 L Glucose 249 H POC Glucose (mg/dL) Troponin I 0.101 H* Total Protein 5.9 L Albumin 3.2 L - Diagnostic Findings CT scan - chest: image reviewed Assessment and Plan Assessment: 1 Acute hypoxemic respiratory failure secondary to massive/submassive pulmonary emboli in the right main pulmonary artery with severe right heart strain 2 Atrial fibrillation with a rapid ventricular response 3 Troponin leak 4 Progression of primary lung adenocarcinoma, stage IV with metastatic lesions to the right adrenal gland and brain 5 Recent radiation therapy to the brain Plan: The patient was seen and evaluated by Dr. Forte CAT scan and labs reviewed Overall prognosis remains quite poor and guarded Not a candidate for TPA therapy based on his metastatic brain lesion Too unstable for EKOS/cardac procedures Patient's and daughter at the bedside They are considering comfort care In the interim, we'll continue with full supportive care Titrate the norepinephrine as tolerated Continue heparin drip Increase propofol for proper sedation Add Fentanyl drip Titrate the FiO2 as tolerated Transfer to the intensive care unit We will continue to follow and make further recommendations based on his clinical status I, the cosigning physician, performed a history & physical examination of the patient. Lungs sounds bilateral scattered rhonchi. Maintaining good O2 saturations in the 90s on 100% FiO2 via the mechanical ventilator. I discussed the assessment and plan of care with my nurse practitioner, Samreen Chacko. I attest to the above note as dictated by her. Time with Patient: Greater than 30
[2020-12-08 13:43] VITALS: RESP 20
[2020-12-08 15:57] VITALS: BP 69/33; PULSE 96
--- NOTE | 2020-12-08 16:11 | P.CONS ---
History of Present Illness - Reason for Consult Consult date: 12/08/20 metastatic lung cancer, PE, respiratory failure - History of Present Illness The pt is a 75 yr old WM, seen by Dr Gutierrez. His Oncology history is as follows ; He was diagnosed with stage IIIC Adenocarcinoma of left lung on October 26 2018 at [facility] in [place], [place]. He presented with large L hilar mass and bilateral mediastinal lymphadenopathy and palpable L supraclavicular lymphadenopathy. All areas had extensive yenny picious uptake on PET Scan. Diagnosis established by US-Guided core biopsy revealed Adenocarcinoma of pulmonary origin. He was treated with 3 cycles of Chemotherapy (Cisplatinum+Alimta) concurrently with EBRT. Wa started on maintenance Darvolumab in February 2019, he continues to receive todate. Recent PET Scan in May 2019 revealed regression of all disease sites, but new R Forearm Radius lesion, no biopsy performed. Referral to Radiation Oncology advised, the patient opted to come back to [place], thus being seen in our office . Harmeet smoked 2 PPD X 30 years, quit 20 years ago, denies ETOH use, remains fully active. 09/14/19: Feels Ok, C/O R elbow/Forearm pain, received XRT to Bone lesion (Bx- proven metastatic Adenocarcinoma of lung). Tolerating Imfinzi well. 10/26/19: Feels well, tolerating Imfinzi well, no chest pain or SOB, no anorexia or weight loss, remains fully active. 11/24/19: Feels well, tolerating Imfinzi well, no anorexia, weight loss, chest pain or SOB. 12/21/19: Reported re-developing mass in R forearm, was seen by Dr Woodward & MRI ordered (12/31/19). No pain, tolerating Darvolumab well. 01/04/20: C/O R forearm pain. MRI > definate progression. 01/25/20: C/O increasing pain in R forearm > mass increasing in size. 02/22/20: Feels well, mass in R forearm decreased following XRT. 04/12/20: Feels well, has local R proximal forearm pain, tolerating Opdivo well. 05/19/20: C/O bilateral shoulders pain, L>R, MRI revealed bilateral rotator cuff tear. Tolerating Opdivo well. 06/16/20: C/O diffuse arthralgias, he thinks its due to Opdivo. PET Scan: Progression of R adrenal met, no new area of disease. the patient refused more chemotherapy at that time but agreed to follow-up with radiation oncology The patient did not follow-up with us after 06/16. He did continue follow-up with radiation oncology. He was diagnosed with brain metastasis in 09/17 and underwent radiation for the same. Repeat MRI in 11/15 showed stable cerebellar lesions with possibility of a new lesion versus infarct in the left brain stem. the patient came into the emergency room, because of acute onset of what seemed like a panic attack and confusion. He appear to be obviously short of breath and became unresponsive. In the ER he had some episodic recovery of mentation. He was also found to be hypotensive and hypoxic and was intubated. Currently the patient is on the ventilator on 100% oxygen, and requiring Levophed. CT angiogram showed massive bilateral PE. Incidentally there also appeared to be some progression of his lung lesions. Consult was placed for further evaluation and recommendations The patient was on the ventilator and unable to provide any history. History was obtained from his chart, direct discussion with radiation oncology and ER physician, as well as his and family. The family indicated that the patient actually had been having some progressive weakness and loss of appetite over the past 2-3 weeks. Review of Systems Refers to review of systems leading up to this admission. Obtained from the chart, family and physicians. Patient unable to provide Constitutional: Reports fatigue, Reports poor appetite, Reports weakness Eyes: denies blurred vision, denies pain Ears: deny: decreased hearing, ear discharge, earache, tinnitus Ears, nose, mouth and throat: Denies headache, Denies sore throat Cardiovascular: Reports decreased exercise tolerance Respiratory: Reports as per HPI Gastrointestinal: Denies abdominal pain, Denies diarrhea, Denies nausea, Denies vomiting Genitourinary: Reports urinary frequency Musculoskeletal: Reports muscle weakness Integumentary: Denies pruritus, Denies rash Neurological: Reports as per HPI, Reports weakness Psychiatric: Denies anxiety, Denies depression Endocrine: Reports fatigue Hematologic/Lymphatic: Reports as per HPI Past Medical History Past Medical History: Cancer, GERD/Reflux, Osteoarthritis (OA) Additional Past Medical History / Comment(s): Lung cancer with mets to R arm, brain and R adrenal gland/pt treated with radiation to brain/arm and family states he has had loss of appetite/fatigue/forgetfulness since radiation treatments (about 2 weeks), hypotension, gastric ulcer History of Any Multi-Drug Resistant Organisms: None Reported Past Surgical History: No Surgical Hx Reported Additional Past Surgical History / Comment(s): Bronchoscopy/lung biopsy, R arm lesion biopsy. Past Anesthesia/Blood Transfusion Reactions: No Reported Reaction Past Psychological History: No Psychological Hx Reported Additional Psychological History / Comment(s): Pt resides with his spouse. He was independent until past 2 weeks. He has no assistive device. He has not been able to drive lately. Smoking Status: Current every day smoker Past Alcohol Use History: None Reported Additional Past Alcohol Use History / Comment(s): Pt started smoking in 1959 and is at least a 2 ppd smoker. Past Drug Use History: Marijuana Additional Drug Use History / Comment(s): Recent marijuana use for pain/appetite. - Past Family History Father Family Medical History: Congestive Heart Failure (CHF), Diabetes Mellitus Mother Family Medical History: Diabetes Mellitus Medications and Allergies Home Medications Medication Instructions Recorded Confirmed Type Dexamethasone [Decadron] 2 mg PO ONCE 12/08/20 12/08/20 History Ibuprofen [Motrin Ib] 800 mg PO Q8H PRN 12/08/20 12/08/20 History Lactose-Reduced Food [Ensure Plus] 1 can PO DAILY 12/08/20 12/08/20 History Omeprazole 20 mg PO DAILY 12/08/20 12/08/20 History Zinc/Magnes/Calc 1 tab PO DAILY 12/08/20 12/08/20 History Allergies Allergy/AdvReac Type Severity Reaction Status Date / Time penicillin G Allergy Swelling Verified 12/08/20 13:38 Physical Exam Vitals: Vital Signs Temp Pulse Resp BP Pulse Ox 12/08/20 13:30 102 H 20 69/56 94 L 12/08/20 13:00 102 H 20 70/60 94 L 12/08/20 11:09 113 H 16 87/62 99 12/08/20 10:14 134 H 18 85/69 92 L 12/08/20 09:59 99.3 F 150 H 26 H 97/63 96 Intake and Output 12/07/20 12/08/20 12/08/20 22:59 06:59 14:59 Other: Weight 95.254 kg sedated, on vent - Constitutional General appearance: no acute distress - EENT Eyes: PERRLA ENT: other (endotracheal tube in situ) - Neck Neck: no lymphadenopathy Thyroid: bilateral: normal size - Respiratory Respiratory: bilateral: diminished - Cardiovascular Rhythm: regular Heart sounds: normal: S1, S2 - Gastrointestinal General gastrointestinal: decreased bowel sounds, soft - Integumentary Integumentary: normal - Neurologic sedated, on ventilator - Musculoskeletal Musculoskeletal: generalized weakness - Psychiatric sedated, on ventilator Results CBC & Chem 7: 12/08/20 10:16 12/08/20 10:16 Labs: Abnormal Lab Results - Last 24 Hours (Table) 12/08/20 12/08/20 12/08/20 Range/Units 10:07 10:16 10:16 WBC 18.2 H (3.8-10.6) k/uL MCHC 30.5 L (31.0-37.0) g/dL RDW 15.9 H (11.5-15.5) % Neutrophils # 12.7 H (1.3-7.7) k/uL Monocytes # 1.2 H (0-1.0) k/uL APTT 20.5 L (22.0-30.0) sec D-Dimer 8.64 H (<0.60) mg/L FEU ABG pH (7.35-7.45) ABG pCO2 (35-45) mmHg ABG pO2 (83-108) mmHg ABG HCO3 (21-25) mmol/L ABG O2 Saturation (94-97) % Carbon Dioxide (22-30) mmol/L Glucose (74-99) mg/dL POC Glucose (mg/dL) 237 H (75-99) mg/dL Troponin I (0.000-0.034) ng/mL Total Protein (6.3-8.2) g/dL Albumin (3.5-5.0) g/dL 12/08/20 12/08/20 12/08/20 Range/Units 10:16 10:16 11:08 WBC (3.8-10.6) k/uL MCHC (31.0-37.0) g/dL RDW (11.5-15.5) % Neutrophils # (1.3-7.7) k/uL Monocytes # (0-1.0) k/uL APTT (22.0-30.0) sec D-Dimer (<0.60) mg/L FEU ABG pH 6.94 L* (7.35-7.45) ABG pCO2 81 H* (35-45) mmHg ABG pO2 302 H (83-108) mmHg ABG HCO3 17 L (21-25) mmol/L ABG O2 Saturation 98.7 H (94-97) % Carbon Dioxide 18 L (22-30) mmol/L Glucose 249 H (74-99) mg/dL POC Glucose (mg/dL) (75-99) mg/dL Troponin I 0.101 H* (0.000-0.034) ng/mL Total Protein 5.9 L (6.3-8.2) g/dL Albumin 3.2 L (3.5-5.0) g/dL CT scan - chest: report reviewed CT Scan - head: report reviewed MRI - head: report reviewed Assessment and Plan (1) Pulmonary embolus Narrative/Plan: the patient is admitted with acute respiratory failure requiring ventilatory support due to massive bilateral pulmonary emboli. He is currently very critical, requiring 100% oxygen, with ongoing hypotension despite pressor support. - The situation was discussed in detail with the ER physician, and the patient's family. They were advised that typically in this situation the patient will be considered for thrombo-lysis or clot extraction. However he is not a candidate for the same, with history of metastatic malignancy and imaging showing progression in the lung. In addition he also has a known history of brain metastasis which were previously treated. He would need definitive imaging to rule out any progression, but is not a candidate for the same given his current clinical status. - They were advised that in this situation without more aggressive treatment, his prognosis just from the pulmonary embolus would be considered very poor, despite aggressive cardiorespiratory support and anticoagulation. - In terms of etiology, this is most likely related to underlying malignancy and progression. Current Visit: Yes Status: Acute Code(s): I26.99 - OTHER PULMONARY EMBOLISM WITHOUT ACUTE COR PULMONALE SNOMED Code(s): 14550238 (2) Metastatic lung carcinoma Narrative/Plan: The patient has known metastatic lung carcinoma, with diagnostic and therapeutic circumstances as described above. He has not followed up in the office since 06/16 but has been following with radiation oncology. The case was discussed in detail with them, and with the ER physician. - It was clarified with the family that the patient has stage IV disease. In regards to his cancer alone, he would not be considered curable. History of treatment would be systemic therapy with objective of long duration of life and palliation of symptoms. - His current CT scans indicate progression. The patient had previously indicated, in 06/16, that he would not want any more chemotherapy, which would otherwise be the mainstay of treatment in his situation. - His prognosis from his acute situation that is a pulmonary embolus is very guarded. Even if he were to recover from that, he had already indicated that he would not want chemotherapy for his lung cancer at the time of progression requiring the same. - The family confirmed his wishes about not wanting more chemotherapy. They were advised that in this situation, it would be very reasonable to consider comfort care. They have changes status to a no code no CPR, which I fully agree with. They will discuss further with other family members before making a final decision. ER physician was apprised of the same. We will remain available for any questions. Current Visit: Yes Status: Acute Code(s): C78.00 - SECONDARY MALIGNANT NEOPLASM OF UNSPECIFIED LUNG SNOMED Code(s): 85748562
[2020-12-08] MEDS ORDERED: MORPHINE SULFATE 4 MG/ML SYRINGE IVP PRN (16:29)
--- NOTE | 2020-12-08 17:14 | P.HPIM ---
History of Present Illness H&P Date: 12/08/20 Chief Complaint: sob 75-year-old gentleman with a known history of metastatic lung cancer, stage IV, with mets to the adrenal gland and brain s/p radiation treatments to the brain, bone mets s/p radiation, received chemo as well, however cancer has been progressive and not responding to treatment, presented to the ER due to progressive weakness. He had been mainly moving only from his bed to the couch and back to bed the last couple of weeks according to his family. Earlier this morning he started having sob. Later he became unresponsive, subsequently he was brought into the emergency room and subsequently intubated and placed on mechanical ventilator. Work up with EKG revealed atrial fibrillation with a rapid ventricular response with heart rate in the 120s, ST segment depression in leads V2 through 6. CT angiogram reveals massive or submassive pulmonary embolism with severe right heart strain. Labs showed arterial blood gases PaO2 of 302, pCO2 81, pH 6.94. White count 18.2. Hemoglobin 13.7. D-dimer 8.64. Sodium 143. Potassium 4.1. Bicarb 18. Creatinine 0.97. Glucose 249. Troponin 0.101. Review of Systems unobtainable due to current mental status Past Medical History Past Medical History: Cancer, GERD/Reflux, Osteoarthritis (OA) Additional Past Medical History / Comment(s): Lung cancer with mets to R arm, brain and R adrenal gland/pt treated with radiation to brain/arm and family states he has had loss of appetite/fatigue/forgetfulness since radiation treatments (about 2 weeks), hypotension, gastric ulcer History of Any Multi-Drug Resistant Organisms: None Reported Past Surgical History: No Surgical Hx Reported Additional Past Surgical History / Comment(s): Bronchoscopy/lung biopsy, R arm lesion biopsy. Past Anesthesia/Blood Transfusion Reactions: No Reported Reaction Past Psychological History: No Psychological Hx Reported Additional Psychological History / Comment(s): Pt resides with his spouse. He was independent until past 2 weeks. He has no assistive device. He has not been able to drive lately. Smoking Status: Current every day smoker Past Alcohol Use History: None Reported Additional Past Alcohol Use History / Comment(s): Pt started smoking in 1959 and is at least a 2 ppd smoker. Past Drug Use History: Marijuana Additional Drug Use History / Comment(s): Recent marijuana use for pain/appetite. - Past Family History Father Family Medical History: Congestive Heart Failure (CHF), Diabetes Mellitus Mother Family Medical History: Diabetes Mellitus Medications and Allergies Home Medications Medication Instructions Recorded Confirmed Type Dexamethasone [Decadron] 2 mg PO ONCE 12/08/20 12/08/20 History Ibuprofen [Motrin Ib] 800 mg PO Q8H PRN 12/08/20 12/08/20 History Lactose-Reduced Food [Ensure Plus] 1 can PO DAILY 12/08/20 12/08/20 History Omeprazole 20 mg PO DAILY 12/08/20 12/08/20 History Zinc/Magnes/Calc 1 tab PO DAILY 12/08/20 12/08/20 History Allergies Allergy/AdvReac Type Severity Reaction Status Date / Time penicillin G Allergy Swelling Verified 12/08/20 13:38 Physical Exam Vitals: Vital Signs Temp Pulse Resp BP Pulse Ox 12/08/20 15:30 96 20 69/33 98 12/08/20 15:00 98 20 70/48 96 12/08/20 14:30 98 20 75/44 96 12/08/20 14:00 101 H 20 71/53 94 L 12/08/20 13:30 102 H 20 69/56 94 L 12/08/20 13:00 102 H 20 70/60 94 L 12/08/20 11:09 113 H 16 87/62 99 12/08/20 10:14 134 H 18 85/69 92 L 12/08/20 09:59 99.3 F 150 H 26 H 97/63 96 Intake and Output 12/08/20 12/08/20 12/08/20 06:59 14:59 22:59 Intake Total 112.305 Balance 112.305 Intake: Intake, IV Titration 112.305 Amount Heparin Sod,Pork in 0.45% 89.445 NaCl 25,000 unit In 0.45 % NaCl 1 250ml.bag @ 18 UNITS/KG/HR 17.146 mls/hr IV .[id number] [facility] Rx#: [id number] propofoL 1,000 mg In 22.86 Empty Bag 1 bag @ Titrate IV .Q0M ONE Rx#: [id number] Other: Weight 95.254 kg GENERAL EXAM: Intubated, sedated HEAD: Normocephalic. EYES: Normal reaction of pupils, equal size. NOSE: Clear with pink turbinates. THROAT: No erythema or exudates. NECK: No masses, no JVD. CHEST: No chest wall deformity. LUNGS: Equal air entry with bilateral scattered rhonchi CVS: S1 and S2 normal with no audible murmur, irregular rhythm. ABDOMEN: No hepatosplenomegaly, normal bowel sounds, no guarding or rigidity. SPINE: No scoliosis or deformity SKIN: No rashes CENTRAL NERVOUS SYSTEM: Intubated, sedated, tone is normal in all 4 extremities. EXTREMITIES: There is no peripheral edema. No clubbing, no cyanosis. Peripheral pulses are intact. Results CBC & Chem 7: 12/08/20 10:16 12/08/20 10:16 Labs: Abnormal Lab Results - Last 24 Hours (Table) 12/08/20 12/08/20 12/08/20 Range/Units 10:07 10:16 10:16 WBC 18.2 H (3.8-10.6) k/uL MCHC 30.5 L (31.0-37.0) g/dL RDW 15.9 H (11.5-15.5) % Neutrophils # 12.7 H (1.3-7.7) k/uL Monocytes # 1.2 H (0-1.0) k/uL APTT 20.5 L (22.0-30.0) sec D-Dimer 8.64 H (<0.60) mg/L FEU ABG pH (7.35-7.45) ABG pCO2 (35-45) mmHg ABG pO2 (83-108) mmHg ABG HCO3 (21-25) mmol/L ABG O2 Saturation (94-97) % Carbon Dioxide (22-30) mmol/L Glucose (74-99) mg/dL POC Glucose (mg/dL) 237 H (75-99) mg/dL Troponin I (0.000-0.034) ng/mL Total Protein (6.3-8.2) g/dL Albumin (3.5-5.0) g/dL 12/08/20 12/08/20 12/08/20 Range/Units 10:16 10:16 11:08 WBC (3.8-10.6) k/uL MCHC (31.0-37.0) g/dL RDW (11.5-15.5) % Neutrophils # (1.3-7.7) k/uL Monocytes # (0-1.0) k/uL APTT (22.0-30.0) sec D-Dimer (<0.60) mg/L FEU ABG pH 6.94 L* (7.35-7.45) ABG pCO2 81 H* (35-45) mmHg ABG pO2 302 H (83-108) mmHg ABG HCO3 17 L (21-25) mmol/L ABG O2 Saturation 98.7 H (94-97) % Carbon Dioxide 18 L (22-30) mmol/L Glucose 249 H (74-99) mg/dL POC Glucose (mg/dL) (75-99) mg/dL Troponin I 0.101 H* (0.000-0.034) ng/mL Total Protein 5.9 L (6.3-8.2) g/dL Albumin 3.2 L (3.5-5.0) g/dL Thrombosis Risk Factor Assmnt - Choose All That Apply Any of the Below Risk Factors Present?: Yes Each Factor Represents 1 point: Obesity (BMI >25) Other Risk Factors: Yes Each Risk Factor Represents 2 Points: Age 61-74 years, Malignancy Other congenital or acquired thrombophilia - If yes, enter type in comment: No Thrombosis Risk Factor Assessment Total Risk Factor Score: 5 Thrombosis Risk Factor Assessment Level: High Risk Assessment and Plan Plan: Acute hypoxemic respiratory failure secondary to massive/submassive pulmonary emboli in the right main pulmonary artery with severe right heart strain Atrial fibrillation with a rapid ventricular response Troponin leak Progression of primary lung adenocarcinoma, stage IV with metastatic lesions to the right adrenal gland and brain Recent radiation therapy to the brain End-of-life care CAT scan and labs reviewed Not a candidate for TPA therapy based on his metastatic brain lesion Too unstable for EKOS/cardac procedures Case was discussed with and daughter at the bedside who already spoke with the electric motorman, oncologist as well as the manufacturing engineer, family has decided to switch patient to comfort care, discontinue mechanical ventilation and keep him comfortable. discontinue all medications Start scopolamine patch, morphine 4 mg every 1 hours when necessary, Ativan 1 mg every hour when necessary
[2020-12-08] MEDS ORDERED: LORazepam 2 MG/ML INJ IV PRN (17:15)
[2020-12-08] MEDS ORDERED: MORPHINE SULFATE 2 MG/ML SYRINGE IVP PRN (17:15)
[2020-12-08] MEDS ORDERED: SCOPOLAMINE 1.5MG/72HR PATCH TRANSDERM STA (17:16)
--- NOTE | 2020-12-09 10:18 | ECHOF ---
Referral Reason:sob, pe MEASUREMENTS -------- HEIGHT: 177.8 cm WEIGHT: 95.3 kg BP: 87/62 RVIDd: 4.6 cm (< 3.3) IVSd: 1.3 cm (0.6 - 1.1) LVIDd: 4.5 cm (3.9 - 5.3) LVPWd: 1.3 cm (0.6 - 1.1) IVSs: 1.7 cm LVIDs: 3.0 cm LVPWs: 1.7 cm LA Diam: 3.0 cm (2.7 - 3.8) Ao Diam: 3.9 cm (2.0 - 3.7) AV Cusp: 2.3 cm (1.5 - 2.6) MV EXCURSION: 18.395 mm (> 18.000) MV EF SLOPE: 167 mm/s (70 - 150) EPSS: 0.6 cm MV E Joe: 0.74 m/s MV DecT: 109 ms MV A Joe: 0.39 m/s MV E/A Ratio: 1.90 RAP: 15.00 mmHg RVSP: 43.95 mmHg TAPSE: 8.24 mm FINDINGS -------- Resting tachycardia (HR>100bpm). This was a technically difficult study with suboptimal apical views. The left ventricular size is normal. There is mild concentric left ventricular hypertrophy. Overa ll left ventricular systolic function is moderately impaired with, an EF between 35 - 40 %. There i s septal flattening in diastole and systole which is consistent with right ventricular pressure and v olume overload. The right ventricle is severely enlarged. The right ventricular systolic function is severely impai red. Small's sign with RV free wall hypokinesis concerning for PE. Clinical correlation recomm ended. The left atrium is normal in size. The right atrium is normal in size. 5 ml of Lumason was utilized for enhancement of images. Interatrial and interventricular septum intact. There is mild aortic valve sclerosis. Mild mitral annular calcification present. Mild tricuspid regurgitation present. There is mild pulmonary hypertension. The right ventricular systolic pressure, as measured by Doppler, is 43.95mmHg. Trace/mild (physiologic) pulmonic regurgitation. The aortic root is dilated measuring 3.9cm. The inferior vena cava is dilated with poor inspiratory collapse which is consistent with estimated r ight atrial pressure of 15 mmHg. Echo free space indicative of a pericardial fat pad. Small Pleural Effusion. CONCLUSIONS -------- 1. The left ventricular size is normal. 2. There is mild concentric left ventricular hypertrophy. 3. Overall left ventricular systolic function is moderately impaired with, an EF between 35 - 40 %. 4. There is septal flattening in diastole and systole which is consistent with right ventricular pres sure and volume overload. 5. The right ventricle is severely enlarged. 6. The right ventricular systolic function is severely impaired. 7. Small's sign with RV free wall hypokinesis concerning for PE. Clinical correlation recommende d. 8. 5 ml of Lumason was utilized for enhancement of images. 9. There is mild aortic valve sclerosis. 10. Mild mitral annular calcification present. 11. Mild tricuspid regurgitation present. 12. There is mild pulmonary hypertension. 13. The right ventricular systolic pressure, as measured by Doppler, is 43.95mmHg. 14. Trace/mild (physiologic) pulmonic regurgitation. 15. The aortic root is dilated measuring 3.9cm. 16. The inferior vena cava is dilated with poor inspiratory collapse which is consistent with estimat ed right atrial pressure of 15 mmHg. 17. Echo free space indicative of a pericardial fat pad. 18. Small Pleural Effusion. PING PONG TABLE ASSEMBLER: Estrella Almendarez RDCS
--- NOTE | 2020-12-09 11:40 | P.DS ---
Providers Date of admission: 12/08/20 13:04 Expected date of discharge: 12/09/20 Attending physician: Flavia García Consults: 12/08/20 13:04 Consult Physician Stat Consulting Provider: Jose C Forte Consult Reason/Comments: Critical care management Do you want consulting provider notified?: Yes 12/08/20 13:24 Consult Physician Stat Consulting Provider: Dimitris Garsia Consult Reason/Comments: Lung cancer Do you want consulting provider notified?: Yes Primary care physician: Stated None Hospital Course: 75-year-old gentleman with a known history of metastatic lung cancer, stage IV, with mets to the adrenal gland and brain s/p radiation treatments to the brain, bone mets s/p radiation, received chemo as well, however cancer has been progressive and not responding to treatment, presented to the ER due to progressive weakness. He had been mainly moving only from his bed to the couch and back to bed the last couple of weeks according to his family. Earlier this morning he started having sob. Later he became unresponsive, subsequently he was brought into the emergency room and subsequently intubated and placed on mechanical ventilator. Work up with EKG revealed atrial fibrillation with a rapid ventricular response with heart rate in the 120s, ST segment depression in leads V2 through 6. CT angiogram reveals massive or submassive pulmonary embolism with severe right heart strain. Labs showed arterial blood gases PaO2 of 302, pCO2 81, pH 6.94. White count 18.2. Hemoglobin 13.7. D-dimer 8.64. Sodium 143. Potassium 4.1. Bicarb 18. Creatinine 0.97. Glucose 249. Troponin 0.101. Upon admission patient was seen by oncology, pulm, cardiology and all agreed that it was a good idea to switch him to comfort care as he was not a candidate for any aggressive treatment. I discussed that with the family. Gave patient morphine and ativan and patient was extubated. He subsequently shortly afterwords. Time for discharge 35 min Plan - Discharge Summary Discharge Rx Participant: No New Discharge Prescriptions: No Action Lactose-Reduced Food [Ensure Plus] 1 can PO DAILY Omeprazole 20 mg PO DAILY Ibuprofen [Motrin Ib] 800 mg PO Q8H PRN PRN Reason: Pain Or Fever > 100.5 Zinc/Magnes/Calc 1 tab PO DAILY Dexamethasone [Decadron] 2 mg PO ONCE Discharge Medication List Dexamethasone [Decadron] 2 mg PO ONCE 12/08/20 [History] Ibuprofen [Motrin Ib] 800 mg PO Q8H PRN 12/08/20 [History] Lactose-Reduced Food [Ensure Plus] 1 can PO DAILY 12/08/20 [History] Omeprazole 20 mg PO DAILY 12/08/20 [History] Zinc/Magnes/Calc 1 tab PO DAILY 12/08/20 [History] Follow up Appointment(s)/Referral(s): None,Stated [Primary Care Provider] - 1-2 days Discharge Disposition: - Preliminary Cause of Preliminary Cause of : pulmonary embolism
--- NOTE | 2021-01-08 15:05 | CDI ---
Documentation Clarification Form Date: 01/08/2021 02:44:16 PM From: Sarah Chávez CCS, CCDS Admit Date: 12/08/2020 01:04:00 PM Patient Name: Harmeet Jensen Visit Number: [id number] Discharge Date: 12/08/2020 06:45:00 PM ATTENTION: The Clinical Documentation Specialists (CDI) and [facility] Coding Staff appreciate your assistance in clarifying documentation. Please respond to the clarification below the line at the bottom and electronically sign. The CDI & [facility] Coding staff will review the response and follow-up if needed. Please note: Queries are made part of the Legal Health Record. If you have any questions, please contact the author of this message via ITS. Dr. Jose C Forte: Right heart strain is documented in the following documents: 12/08 Pulmonary/Critical Care Consult: "Acute hypoxemic respiratory failure secondary to massive/submassive pulmonary emboli in the right main pulmonary artery with severe right heart strain." 12/08 Cardiology Consult: "Eventually they were able to get him to CT and was found to have submassive PE with severe right heart strain." 12/08 H/P: "Acute hypoxemic respiratory failure secondary to massive/submassive pulmonary emboli in the right main pulmonary artery with severe right heart strain." Additional clarification regarding additional condition(s) related to the patients pulmonary embolism. 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 Clinical Indicators: Presented to the ED on 12/08 with Altered Mental Status & Unresponsive per EMS. Became unresponsive requiring CPR, resuscitated. Confused and significantly altered. 12/08 VS: T 99.3, P 150 - 134, R 26 - 18 (SOB, tachypnea), BP 97/63, 85/69; PO 96 nrb - 92 nrb. 12/08: Blood Gas: ABG pH 6.94, pCO2 81, pO2 302, HCO3 17, O2 Sat 98.7. APTT 20.5, D Dimer 8.64. Troponin 0.101. 12/08 ECHO: Mild concentric LVH, Left ventricular systolic function is moderately impaired w/EF 35-40%, Septal flattening in diastole & systole consistent with right ventricular pressure and volume overload, Right ventricle is severe enlarged, Right ventricular systolic function is severely impaired. Mild pulmonary hypertension. Trace/mild pulmonic regurgitation. 12/08 CT Chest: Massive or submassive pulmonary embolism with severe right heart strain. Treatment 12/08: Intubated in the ED, A-Line, NGT, O2: 100% nrb, IV Ativan, IV fluid 1,000 mls @ 999 mls/hr q1H, IV fluid 2,000 mls @ 999 mls/hr q2H, IV Propofol, IV Heparin, IV Levophed, IV Morphine. Patient 12/08 18:45. Please clarify the acuity and etiology of Cor pulmonale, if known: [ ] Acute Cor pulmonale due to pulmonary embolism [ ] Acute Cor pulmonale due to (please specify) [ ] Chronic Cor pulmonale due to Pulmonary Hypertension [ ] Chronic Cor pulmonale due to (please specify) [ ] Unable to determine [ ] Other, please specify Template Last Revised: September 2020) MTDD
--- NOTE | 2021-01-08 15:14 | CDI ---
Documentation Clarification Form Date: 01/08/2021 03:06:04 PM From: Sarah Chávez CCS, CCDS Admit Date: 12/08/2020 01:04:00 PM Patient Name: Harmeet Jensen Visit Number: [id number] Discharge Date: 12/08/2020 06:45:00 PM ATTENTION: The Clinical Documentation Specialists (CDI) and [facility] Coding Staff appreciate your assistance in clarifying documentation. Please respond to the clarification below the line at the bottom and electronically sign. The CDI & [facility] Coding staff will review the response and follow-up if needed. Please note: Queries are made part of the Legal Health Record. If you have any questions, please contact the author of this message via ITS. Dr. Efra Vilchis: ST elevation is documented in the 12/08 Cardiology Consult without further specificity. Additional clarification regarding related diagnoses is requested. 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 Clinical Indicators: Presented to the ED on 12/08 with Altered Mental Status & Unresponsive per EMS. Became unresponsive requiring CPR, resuscitated. Confused and significantly altered. 12/08 VS: T 99.3, P 150 - 134, R 26 - 18 (SOB, tachypnea), BP 97/63, 85/69; PO 96 nrb - 92 nrb. 12/08: Blood Gas: ABG pH 6.94, pCO2 81, pO2 302, HCO3 17, O2 Sat 98.7. APTT 20.5, D Dimer 8.64. Troponin 0.101. 12/08 CT Chest: Massive or submassive pulmonary embolism with severe right heart strain. 12/08 ECHO: Mild concentric LVH, Left ventricular systolic function is moderately impaired w/EF 35-40%, Septal flattening in diastole & systole consistent with right ventricular pressure and volume overload, Right ventricle is severe enlarged, Right ventricular systolic function is severely impaired. Mild pulmonary hypertension. Trace/mild pulmonic regurgitation. 12/08 EKG: Atrial fibrillation with RVR, RBBB, T wave abnormality, consider ischemia or digitalis effect. Rate 122. Treatment 12/08: Intubated in the ED, A-Line, NGT, O2: 100% nrb, IV Ativan, IV fluid 1,000 mls @ 999 mls/hr q1H, IV fluid 2,000 mls @ 999 mls/hr q2H, IV Propofol, IV Heparin, IV Levophed, IV Morphine. Patient 12/08 18:45. Please clarify the following diagnosis(es): [ ] STEMI (type 1) [ ] NSTEMI (type 1) [ ] Type II WA due to (please specify etiology) [ ] Troponin elevation due to (please specify): [ ] Unable to determine [ ] Other Condition, please specify (Template Last Revised: September 2020) Unable to determine MTDD
--- NOTE | 2021-01-08 15:20 | CDI ---
Documentation Clarification Form Date: 01/08/2021 03:15:00 PM From: Sarah Chávez CCS, CCDS Admit Date: 12/08/2020 01:04:00 PM Patient Name: Harmeet Jensen Visit Number: [id number] Discharge Date: 12/08/2020 06:45:00 PM ATTENTION: The Clinical Documentation Specialists (CDI) and [facility] Coding Staff appreciate your assistance in clarifying documentation. Please respond to the clarification below the line at the bottom and electronically sign. The CDI & [facility] Coding staff will review the response and follow-up if needed. Please note: Queries are made part of the Legal Health Record. If you have any questions, please contact the author of this message via ITS. Dr. Silvestre Peck: Per the ED Note 12/08: The patient came into the emergency room, because of an acute onset of what seemed like a panic attack and confusion. Additional clarification regarding the patient's confusion and altered mental status is requested. 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 Clinical Indicators: Presented to the ED on 12/08 with Altered Mental Status & Unresponsive per EMS. Became unresponsive requiring CPR, resuscitated. Confused and significantly altered. 12/08 VS: T 99.3, P 150 - 134, R 26 - 18 (SOB, tachypnea), BP 97/63, 85/69; PO 96 nrb - 92 nrb. 12/08: Blood Gas: ABG pH 6.94, pCO2 81, pO2 302, HCO3 17, O2 Sat 98.7. APTT 20.5, D Dimer 8.64. Troponin 0.101. 12/08 ECHO: Mild concentric LVH, Left ventricular systolic function is moderately impaired w/EF 35-40%, Septal flattening in diastole & systole consistent with right ventricular pressure and volume overload, Right ventricle is severe enlarged, Right ventricular systolic function is severely impaired. Mild pulmonary hypertension. Trace/mild pulmonic regurgitation. 12/08 CT Chest: Massive or submassive pulmonary embolism with severe right heart strain. Treatment 12/08: Intubated in the ED, A-Line, NGT, O2: 100% nrb, IV Ativan, IV fluid 1,000 mls @ 999 mls/hr q1H, IV fluid 2,000 mls @ 999 mls/hr q2H, IV Propofol, IV Heparin, IV Levophed, IV Morphine. Patient 12/08 18:45. Please clarify the type of encephalopathy, if known: [ ] Metabolic Encephalopathy [ ] Toxic Encephalopathy [ ] Other, please specify [ ] Unable to determine (Template Last Revised: September 2020) Metabolic Encephalopathy MTDD
== END 2020-12-08 18:45 | disposition expired | DRG 208 ==
LOC: EC 09:57 → 2SICU 13:04
PROVIDERS: ADMIT Internal Medicine; ATTEND Internal Medicine
PROC: 5A1935Z Respiratory Ventilation, Less than 24 Consecutive Hours (ICD-10-PCS; principal; 2020-12-08)
PROC: 0BH17EZ Insertion of Endotracheal Airway into Trachea, Via Natural or Artificial Opening (ICD-10-PCS; principal; 2020-12-08)
PROC: 3E033XZ Introduction of Vasopressor into Peripheral Vein, Percutaneous Approach (ICD-10-PCS; 2020-12-08)
PROC: 4A133J1 Monitoring of Arterial Pulse, Peripheral, Percutaneous Approach (ICD-10-PCS; 2020-12-08)
PROC: 4A133B1 Monitoring of Arterial Pressure, Peripheral, Percutaneous Approach (ICD-10-PCS; 2020-12-08)
PROC: 03HY32Z Insertion of Monitoring Device into Upper Artery, Percutaneous Approach (ICD-10-PCS; 2020-12-08)
PROC: 0D9670Z Drainage of Stomach with Drainage Device, Via Natural or Artificial Opening (ICD-10-PCS; 2020-12-08)
DX: I26.09 Other pulmonary embolism with acute cor pulmonale (principal); J96.01 Acute respiratory failure with hypoxia; G93.41 Metabolic encephalopathy; C34.02 Malignant neoplasm of left main bronchus; C79.51 Secondary malignant neoplasm of bone; C79.71 Secondary malignant neoplasm of right adrenal gland; C77.9 Secondary and unspecified malignant neoplasm of lymph node, unspecified; C79.31 Secondary malignant neoplasm of brain; I48.0 Paroxysmal atrial fibrillation; F41.0 Panic disorder [episodic paroxysmal anxiety]; I49.3 Ventricular premature depolarization; K21.9 Gastro-esophageal reflux disease without esophagitis; M75.102 Unspecified rotator cuff tear or rupture of left shoulder, not specified as traumatic; M75.101 Unspecified rotator cuff tear or rupture of right shoulder, not specified as traumatic; Z51.5 Encounter for palliative care; Z66 Do not resuscitate; I95.9 Hypotension, unspecified; M19.90 Unspecified osteoarthritis, unspecified site; Z20.822 Contact with and (suspected) exposure to COVID-19; R77.8 Other specified abnormalities of plasma proteins; Z82.49 Family history of ischemic heart disease and other diseases of the circulatory system; Z83.3 Family history of diabetes mellitus; F17.200 Nicotine dependence, unspecified, uncomplicated; Z87.11 Personal history of peptic ulcer disease; Z92.21 Personal history of antineoplastic chemotherapy; Z92.3 Personal history of irradiation; Z88.0 Allergy status to penicillin; Z98.890 Other specified postprocedural states
CPT/HCPCS: 36415; 36600; 70450; 71275; 80053; 82805; 84484; 85025; 85379; 85610; 85730; 87635; 93005; 93306; 94002; 96374; 96375; 99291